=== PATIENT | female | born 1970 ===

== ENCOUNTER → 2022-06-16 | Outpatient (CLI) | payer OTHER ==
[~2022-06-16] MED LIST: CLIN150 PO; HYDACE5 PO; METO10 PO; OXYACE7.5T PO; PENVK500 PO; PROM25 PO; RXOXYACE PO; SERT100
[2022-06-21 19:06] LABS: HPV 16 Negative (Negative); HPV 18 Negative (Negative); HPV OTHER HR TYPES Negative (Negative)
== END | disposition home or self-care (01) ==
LOC: RAD SHORT 08:58 → LAB 08:58
PROVIDERS: Family Medicine
DX: Z12.4 Encounter for screening for malignant neoplasm of cervix (principal)
CPT/HCPCS: 87624; G0145